=== PATIENT | female | born 1975 ===

== ENCOUNTER 2017-01-23 06:34 | Day surgery (SDC) | payer BC ==
[~2017-01-23] VITALS: Ht 157.5 cm; Wt 87.1 kg
[2017-01-23] VITALS (11 sets, daily range): BP systolic 107–128; BP diastolic 58–78
[~2017-01-23 06:34] MED LIST: ENBREL50 MG/1 M1 SUBQ
[2017-01-23] MEDS ORDERED: Sterile Water Irrig 1000ml IRRIG ONE (06:35)
[2017-01-23] MEDS ORDERED: Propofol 10mg/ml 20ml IV ONE (06:35)
[2017-01-23] MEDS ORDERED: fentaNYL 100 mcg/2 mL IV ONE (06:35)
[2017-01-23] MEDS ORDERED: LR 1000ml ONE (06:35)
[2017-01-23] MEDS ORDERED: NS Irrig 1000ml ONE (06:35)
[2017-01-23] MEDS ORDERED: Midazolam 2mg/2ml Inj ONE (06:35)
[2017-01-23] MEDS ORDERED: Ketorolac 30mg Inj ONE (06:35)
[2017-01-23] MEDS ORDERED: cefOXitin 2gm Inj ONE ×2 (06:35→07:05)
[2017-01-23] MEDS ORDERED: cefOXitin Sod 1 GM in D5W 55 ML IVPB ONE (07:00)
--- NOTE | 2017-01-23 07:38 | Pre-Procedure Note/Attestation ---
Pre-Procedure Note/Attestation Complete Prior to Procedure Planned Procedure: not applicable Procedure Narrative: hysteroscopy dilation and curettage Indications for Procedure Pre-Operative Diagnosis: endometrial polyp Attestation I attest that I discussed the nature of the procedure; its benefits; risks and complications; and alternatives (and the risks and benefits of such alternatives ), prior to the procedure, with the patient (or the patient's legal sales representative gas service). I attest that, if there was a reasonable possibility of needing a blood transfusion, the patient (or the patient's legal sales representative gas service) was given the [facility] standardized written summary, pursuant to the [place] Blood Safety Act ([place] Health and Safety Code # 1645, as amended). I attest that I re-evaluated the patient just prior to the surgery and that there has been no change in the patient's H&P, except as documented below: DEANA GARCIA Jan 23, 2017 07:38
[2017-01-23] MEDS ORDERED: LR 1000ml 1,000 ML IVLG SCH (08:10)
--- NOTE | 2017-01-23 08:10 | Anethesia Preoperative Eval ---
Anesthesia Pre-op PMH/ROS General Date of Evaluation: Jan 23, 2017 Time of Evaluation: 07:20 Anesthesiologist: Luz ASA Score: ASA 2 Mallampati Score Class I : Soft palate, uvula, fauces, pillars visible Class II: Soft palate, uvula, fauces visible Class III: Soft palate, base of uvula visible Class IV: Only hard plate visible Mallampati Classification: Class II Surgeon: Alondra Diagnosis: Endometrial polyp Surgical Procedure: D&C Hysteroscopy Polypectomy Anesthesia History: none Family History: no anesthesia problems Allergies: Coded Allergies: No Known Allergies (Unverified , 01/21/17) Medications: see eMAR Past Medical History Cardiovascular: Denies: CAD, HTN, [place], arrhythmia, other, valve dz Pulmonary: Reports: OLIVA, Denies: COPD, asthma, other Gastrointestinal/Genitourinary: Reports: GERD - mild, Denies: CRI, ESRD, other Neurologic/Psychiatric: Denies: CVA, TIA, dementia, depression/anxiety, other Endocrine: Denies: DM, hypothyroidism, other, steroids HEENT: Denies: [place] (L), [place] (R), cataract (L), cataract (R), glaucoma, other Hematology/Immune: Denies: DVT, anemia, bleeding disorder, other Musculoskeletal/Integumentary: Denies: DDD, DJD, OA, RA, edema, other Other: obesity PMH Narrative: as above PSxH Narrative: D&C L shoulder ORIF Anesthesia Pre-op Phys. Exam Physician Exam Last Vital Signs Date Time Temp Pulse Resp B/P Pulse Ox O2 Delivery O2 Flow Rate FiO2 01/23/17 06:58 97.5 75 17 120/78 Room Air Constitutional: NAD Neurologic: CN 2-12 intact Cardiovascular: RRR, no M/R/G Respiratory: CTA Gastrointestinal: other - obesity Airway Exam Mallampati Score: Class II MO: full Neck: short ROM: full Teeth: intact Dentures: no lower, no upper Anesthesia Pre-op A/P Labs see chart Urine Test Test 01/23/17 06:45 Urine HCG, Qualitative Negative Studies Pre-op Studies: EKG - NSR Risk Assessment & Plan Assessment: ASA 2 Plan: GA with LMA PONV prevention Status Change Before Surgery: No Pre-Antibiotics Drug: Cefoxitin 2gr. Given Within 1 Hr of Incision: Yes Time Given: 07:52 ROHINI FU M.D. Jan 23, 2017 08:10
[2017-01-23] MEDS ORDERED: Hydromorphone 0.5mg/0.5ml inj IVP PRN (08:15)
[2017-01-23] MEDS ORDERED: Meperidine 25mg/0.5ml Inj IV PRN (08:15)
[2017-01-23] MEDS ORDERED: Metoclopramide 10mg/2ml Inj IVP PRN ×2 (08:15→14:15)
[2017-01-23] MEDS ORDERED: Midazolam 2mg/2ml Inj IVP PRN (08:15)
[2017-01-23] MEDS ORDERED: DiphenhydrAMINE 50mg/ml Inj IVP PRN ×2 (08:15→14:16)
[2017-01-23] MEDS ORDERED: Ketorolac 30mg Inj IV PRN (08:15)
--- NOTE | 2017-01-23 08:22 | Brief Operative Note ---
Immediate Post Operative Note Operative Note Pre-op Diagnosis: endometrial polyp Post-op Diagnosis: same as pre-op plus Surgeon: suzie Anesthesiologist: salima Anesthesia: general Specimen: yes Complications: none Condition: stable Estimated Blood Loss: minimal Implant(s) used?: No DEANA GARCIA Jan 23, 2017 08:22
--- NOTE | 2017-01-23 08:41 | Immediate Post-Op Evaluation ---
Immediate Post-Op Evalulation Immediate Post-Op Evalulation Procedure: D&C Hysteroscopy polipectomy Date of Evaluation: Jan 23, 2017 Time of Evaluation: 08:39 IV Fluids: 1000 Blood Products: no ne Estimated Blood Loss: <50 Urinary Output: 200 Blood Pressure Systolic: 121 Blood Pressure Diastolic: 68 Pulse Rate: 98 Respiratory Rate: 20 O2 Sat by Pulse Oximetry: 99 Temperature (Fahrenheit): 97.8 Pain Score (1-10): 2 Nausea: No Vomiting: No Complications none Patient Status: reacts, none ROHINI FU M.D. Jan 23, 2017 08:41
--- NOTE | 2017-01-23 11:45 | Operative Note - Dictated ---
DATE OF OPERATION: 01/23/2017 PREOPERATIVE DIAGNOSIS: Endometrial polyp. POSTOPERATIVE DIAGNOSIS: Endometrial polyp. PROCEDURE: Dilation and curettage hysteroscopy. ANESTHESIA: General. SURGEON: Erika Cantu M.D. MILITARY NURSE: None. ANESTHESIOLOGIST: Guillermo Escobar M.D. SPECIMENS: Posterior flat polyp. No other lesions. Both ostia observed. COMPLICATIONS: None. PROCEDURE IN DETAIL: After ensuring informed consent, the patient was taken to the operating room, where general anesthesia was induced. The patient was sterilely prepped and draped. Weighted speculum was placed in the vagina. Cervix was dilated to an 8 Hegar dilator. Hysteroscope was placed inside the uterine cavity. Uterine cavity was distended with normal saline. Please note the uterine cavity sounded to 9.5 cm. There was a posterior wall flat polyp observed that was removed with poly forceps. Ostia were observed . There were no other lesions. The base of the polyp was curetted to remove wall of the polyp. ECC was performed. All instruments were removed from the vagina. Excellent hemostasis was ensured. The patient was taken to the recovery area and breathing on her own and in stable condition. Erika Cantu M.D. DR: KELLY JOB#: [id number] CC:
--- NOTE | 2017-01-23 13:11 | 48 Hour Post Anesthesia Eval ---
Post Anesthesia Evaluation Procedure: D&C Hysteroscopy polipectomy Date of Evaluation: Jan 23, 2017 Time of Evaluation: 13:10 Blood Pressure Systolic: 124 0: 58 Pulse Rate: 76 Respiratory Rate: 20 Temperature (Fahrenheit): 98.1 O2 Sat by Pulse Oximetry: 99 Airway: patent Nausea: No Vomiting: No Pain Intensity: 2 Hydration Status: adequate Cardiopulmonary Status: stable Mental Status/LOC: patient returned to baseline Follow-up Care/Observations: n/a Post-Anesthesia Complications: none Follow-up care needed: ready to discharge ROHINI FU M.D. Jan 23, 2017 13:11
[2017-01-23] MEDS ORDERED: HYDROmorphone 1mg/ml Carpuject SUBQ PRN (14:16)
[2017-01-23] MEDS ORDERED: Norco 5mg/325mg tab ORAL PRN (14:16)
[2017-01-23] MEDS ORDERED: Tylenol #3 tab (300mg/30mg) ORAL PRN (14:16)
[2017-01-23] MEDS ORDERED: D5 1/2NS 1,000 ML IV SCH (14:16)
== END 2017-01-23 10:20 | disposition home or self-care (01) ==
LOC: SUR 06:34
DX: N84.0 Polyp of corpus uteri (principal); G47.33 Obstructive sleep apnea (adult) (pediatric); K21.9 Gastro-esophageal reflux disease without esophagitis; E66.9 Obesity, unspecified
CPT/HCPCS: 58558; 81025; J0694; J1885; J2250; J2405; J2704; J3010; J7120; 94003; 94150